=== PATIENT | female | born 1970 | race Caucasian/White ===

== ENCOUNTER → 2017-09-17 | Emergency (ER) | payer OTHER ==
[~2017-09-17] VITALS: Ht 157.5 cm; Wt 68.0 kg
[~2017-09-17] MED LIST: LEVAQUIN750 MG PO; MEDROLPACK PO; PAXIL20 MG; ZYRTEC10 M3 PO
== END | disposition home or self-care (01) ==
LOC: ER 18:09
DX: J06.9 Acute upper respiratory infection, unspecified (principal)

== ENCOUNTER 2017-10-05 07:59 | Emergency (ER) | payer OTHER ==
[~2017-10-05] VITALS: Ht 157.5 cm; Wt 65.8 kg
[2017-10-05] MEDS ORDERED: LIPITOR20 MG (08:06)
[2017-10-05] MEDS ORDERED: IBUPROFEN800 MG PO (10:43)
[2017-10-05] MEDS ORDERED: MEDROLPACK PO (10:46)
== END 2017-10-05 12:01 | disposition home or self-care (01) ==
LOC: ER 07:59
DX: K12.2 Cellulitis and abscess of mouth (principal)

== ENCOUNTER → 2017-12-21 | Emergency (ER) | payer OTHER ==
[~2017-12-21] VITALS: Ht 157.5 cm; Wt 68.0 kg
[~2017-12-21] MED LIST changes: +IBUPROFEN800 MG PO; +KETO10TA2 PO; +LIPITOR20 MG; +NORFLEX100MG PO
== END | disposition home or self-care (01) ==
LOC: ER 22:29
DX: M54.5 Low back pain (principal)

== ENCOUNTER 2018-06-26 10:47 | Emergency (ER) | payer OTHER ==
[~2018-06-26] VITALS: Ht 157.5 cm; Wt 65.8 kg
[2018-06-26] MEDS ORDERED: MEDROLPACK PO (14:09)
== END 2018-06-26 14:13 | disposition home or self-care (01) ==
LOC: ER 10:47
DX: J06.9 Acute upper respiratory infection, unspecified (principal)

== ENCOUNTER 2018-06-28 10:21 | Emergency (ER) | payer OTHER ==
[~2018-06-28] VITALS: Ht 157.5 cm; Wt 68.0 kg
[2018-06-28] MEDS ORDERED: LEVAQUIN750 MG PO (12:22)
[2018-06-28] MEDS ORDERED: FLONASE ALLERG9.9 ML NASAL (15:13)
[2018-06-28] MEDS ORDERED: KETO10TA2 PO (15:13)
[2018-06-28] MEDS ORDERED: NEBUSAL4 M1 IH (15:13)
== END 2018-06-28 15:41 | disposition home or self-care (01) ==
LOC: ER 10:21
DX: J06.9 Acute upper respiratory infection, unspecified (principal); H66.92 Otitis media, unspecified, left ear; J11.1 Influenza due to unidentified influenza virus with other respiratory manifestations

== ENCOUNTER 2018-09-14 13:50 | Emergency (ER) | payer OTHER ==
[~2018-09-14] VITALS: Ht 154.9 cm; Wt 70.3 kg
[~2018-09-14 13:50] MED LIST changes: +FLONASE ALLERG9.9 ML NASAL; +NEBUSAL4 M1 IH
[2018-09-14] MEDS ORDERED: ZITHROMAX200 MG (14:25)
[2018-09-14] MEDS ORDERED: CEFADROXIL500 MG PO (15:51)
== END 2018-09-14 16:14 | disposition home or self-care (01) ==
LOC: ER 13:50
DX: J32.8 Other chronic sinusitis (principal)

== ENCOUNTER 2020-03-30 11:18 | Emergency (ER) | payer OTHER ==
[~2020-03-30] VITALS: Ht 157.5 cm; Wt 77.1 kg
[~2020-03-30 11:18] MED LIST changes: +CEFADROXIL500 MG PO; +ZITHROMAX200 MG
[2020-03-30] MEDS ORDERED: DICLOFENAC SODI75 MG PO (12:16)
== END 2020-03-30 12:56 | disposition home or self-care (01) ==
LOC: ER 11:18
DX: M75.82 Other shoulder lesions, left shoulder (principal)

== ENCOUNTER 2020-11-13 16:06 | Emergency (ER) | payer OTHER ==
[~2020-11-13] VITALS: Ht 157.5 cm; Wt 81.6 kg
[~2020-11-13 16:06] MED LIST changes: +DICLOFENAC SODI75 MG PO
== END 2020-11-13 17:41 | disposition home or self-care (01) ==
LOC: ER 16:06
DX: R00.2 Palpitations (principal)

== ENCOUNTER 2021-08-21 08:17 | Outpatient (CLI) | payer OTHER | END 2021-08-21 08:28 | disposition home or self-care (01) | LOC: MAMO-SONO 08:17 | PROVIDERS: ATTEND Obstetrics & Gynecology | DX: N60.11 Diffuse cystic mastopathy of right breast (principal) ==

== ENCOUNTER → 2022-09-08 | Emergency (ER) | payer OTHER ==
[~2022-09-08] VITALS: Ht 160 cm; Wt 48.5 kg
== END | disposition home or self-care (01) ==
LOC: ER 08:35
DX: M25.562 Pain in left knee (principal)

== ENCOUNTER → 2025-02-21 | Outpatient (CLI) | payer OTHER | END | disposition home or self-care (01) | LOC: MRI 12:49 | PROVIDERS: ATTEND Psychiatry & Neurology Clinical Neurophysiology | DX: M54.12 Radiculopathy, cervical region (principal) | CPT/HCPCS: 72141 ==

== ENCOUNTER 2025-05-06 17:17 | Inpatient (IN) | payer OTHER ==
[~2025-05-06] VITALS: Ht 157.5 cm; Wt 59.9 kg
--- NOTE | 2025-05-06 17:36 | NUR ---
PTE ALERTA Y ORIENTADA X3, SE RUTHY S/V. PTE REFIERE QUE TUVO NANETTE CAIDA MIETRAS CORRIA PATINES. SE OBSERVA FRACTURA EN MIRIAM DERECHA. PTE REHUSA QUE SE LE COLOQUE CABESTRILLO
[2025-05-06] MEDS ORDERED: KETOROLAC TROMETHAMINE 30 MG VIAL ONE (17:51)
[2025-05-06] MEDS ORDERED: KETOROLAC TROMETHAMINE 30 MG VIAL IM ONE (18:00)
--- NOTE | 2025-05-06 18:03 | NUR ---
SE EDUCA ACERCA DE [place] ORDENADO, SE ADMINISTRA MEDICAMENTO KANDICE ORDEN MEDICA Y MEDIANTE MEDIDAS ASEPTICAS.
[2025-05-06] MEDS ORDERED: 0.9 % SODIUM CHLORIDE 1,000 ML IV ONE (19:00)
[2025-05-06] MEDS ORDERED: PAROXETINE HCL 20 MG TABLET PO SCH (20:08)
[2025-05-06] MEDS ORDERED: 0.9 % SODIUM CHLORIDE 1,000 ML IV SCH (20:15)
[2025-05-06] MEDS ORDERED: ONDANSETRON HCL 4 MG in 0.9 % SODIUM CHLORIDE 50 ML IV PRN (20:15)
[2025-05-06] MEDS ORDERED: MORPHINE SULFATE 2 MG/ML SYRINGE IV PRN (20:15)
[2025-05-06 20:17] LABS: BASO % 0.6 % (0.1-1.2); EOS # 0.14 (0.04-0.54); EOS % 2.2 % (0.7-7.0); LYMPH # 1.58 (1.18-3.74); LYMPH % 25.2 % (19.3-53.1); MEAN PLATELET VOLUME 8.70 fl (9.4-12.4); MONO # 0.38 (0.24-0.82); MONO % 6.1 % (4.7-12.5); NEUT # 4.13 (1.56-6.13); NEUT % 65.7 % (34.0-71.1); RED CELL DISTRIBUTION WIDTH 12.1 % (11.6-14.4)
[2025-05-06 20:28] LABS: INR 0.96
[2025-05-06 20:31] VITALS: BP 100/70
[2025-05-06 20:33] LABS: ALT/SGPT 36.0 U/L (12-78); AST/SGOT 20.0 U/L (15-37); BILIRUBIN TOTAL 0.27 mg/dL (0.3-1.2); BUN CREA RATIO 21.0 (7.0-25.0); CREATININE SERUM 0.75 mg/dL (0.55-1.02); GFR 80.23; GLOBULINA 3.6 G/DL (2.4-3.5); GLUCOSE FASTING 97.0 mg/dL (65-100); OSMOLALITY SERUM 282.0 MOSM/KG (275-295)
[2025-05-06 20:55] LABS: URINE APPEARANCE Clear; URINE BILIRRUBIN Negative (NEGATIVE); URINE BLOOD Negative; URINE COLOR Dark Yellow; URINE GLUCOSE Negative (NEGATIVE); URINE KETONE 15 (NEGATIVE); URINE LEUKOCYTE Negative; URINE NITRATE Negative; URINE PROTEIN Trace (NEGATIVE); URINE UROBILINOGEN 0.2 E.U./dl
[2025-05-06] MEDS ORDERED: FAMOTIDINE/PF 20 MG in 0.9 % SODIUM CHLORIDE 8 ML IV PUSH SCH (21:00)
[2025-05-06 21:01] LABS: URINE EPITHELIAL CELLS 89.3 uL (0.0-38.8); URINE RBC 10.7 uL (0.0-20.8); URINE WBC 28.1 uL (0.0-23.2)
[2025-05-06 21:18] LABS: URINE CAST 0.29 uL (0.0-1.40); URINE CRYSTALS FEW /HPF
[2025-05-06 23:40] VITALS: BP 95/57; O2SAT 100
[2025-05-07 02:16] VITALS: BP 108/71; O2SAT 99
[2025-05-07 08:00] VITALS: BP 102/67; O2SAT 98
[2025-05-07] MEDS ORDERED: CEFAZOLIN SODIUM 1,000 MG VIAL ONE (12:35)
[2025-05-07] MEDS ORDERED: ISOPROPYL ALCOHOL 30 ML OUNCE TOP ONE (12:45)
[2025-05-07] MEDS ORDERED: SODIUM CHLORIDE 0.45 % 1,000 ML IV SCH (14:30)
[2025-05-07] MEDS ORDERED: TRAMADOL HCL 50 MG TABLET PO PRN (14:30)
[2025-05-07] MEDS ORDERED: PROMETHAZINE HCL 50 MG/ML AMPUL IM PRN (14:30)
[2025-05-07 16:00] VITALS: BP 103/63; O2SAT 100
[2025-05-07] MEDS ORDERED: CEFAZOLIN SODIUM 1,000 MG VIAL IV SCH (17:00)
[2025-05-07] MEDS ORDERED: ACETAMINOPHEN 325 MG TABLET PO SCH (17:00)
[2025-05-07] MEDS ORDERED: CELECOXIB 200 MG CAPSULE PO SCH (17:00)
[2025-05-07] MEDS ORDERED: TRAMADOL HCL50 MG PO (17:47)
[2025-05-07] MEDS ORDERED: KETOROLAC TROMETHAMINE 10 MG TABLET PO SCH (21:00)
[2025-05-08] MEDS ORDERED: PANTOPRAZOLE SODIUM 40 MG TABLET.DR PO SCH (09:00)
== END 2025-05-07 18:26 | disposition home or self-care (01) | DRG 512 ==
LOC: ER 17:18 → SEC-K 20:10 → SURH 20:10
PROVIDERS: General Practice; ADMIT Internal Medicine; ATTEND Internal Medicine
PROC: 0PSH04Z Reposition Right Radius with Internal Fixation Device, Open Approach (ICD-10-PCS; principal; 2025-05-06)
PROC: 0PUH0JZ Supplement Right Radius with Synthetic Substitute, Open Approach (ICD-10-PCS; 2025-05-06)
PROC: 0L850ZZ Division of Right Lower Arm and Wrist Tendon, Open Approach (ICD-10-PCS; 2025-05-06)
DX: S52.531A Colles' fracture of right radius, initial encounter for closed fracture (principal); M24.531 Contracture, right wrist

== ENCOUNTER 2025-05-30 08:18 | Outpatient (CLI) | payer OTHER ==
[~2025-05-30 08:18] MED LIST changes: +TRAMADOL HCL50 MG PO
== END 2025-05-30 08:22 | disposition home or self-care (01) ==
LOC: RAD 08:18
PROVIDERS: ATTEND Orthopaedic Surgery
DX: S52.531D Colles' fracture of right radius, subsequent encounter for closed fracture with routine healing (principal)